=== PATIENT | male | born 1955 | race Caucasian/White ===

== ENCOUNTER 2017-04-05 15:56 | Emergency (ER) | payer OTHER ==
[~2017-04-05] VITALS: Ht 180.3 cm; Wt 93.0 kg
[2017-04-05 16:05] VITALS: BP 138/73
[2017-04-05] MEDS ORDERED: ACETAMINOPHEN 500 MG TABLET PO ONE (16:15)
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
[2017-04-05] MEDS ORDERED: IBUP-1007 PO (17:00)
[2017-04-05] MEDS ORDERED: METH-37 PO (17:00)
== END 2017-04-05 17:07 | disposition home or self-care (01) ==
LOC: ER 16:18
DX: S16.1XXA Strain of muscle, fascia and tendon at neck level, initial encounter (principal); E11.9 Type 2 diabetes mellitus without complications; R51 Headache; Z79.82 Long term (current) use of aspirin; V49.40XA Driver injured in collision with unspecified motor vehicles in traffic accident, initial encounter; Y93.89 Activity, other specified; Y99.8 Other external cause status; Y92.488 Other paved roadways as the place of occurrence of the external cause
CPT/HCPCS: 70450; 72125; 99284

== ENCOUNTER 2022-03-26 16:43 | Emergency (ER) | payer MEDICARE, OTHER ==
[~2022-03-26 16:43] MED LIST: CALCIUM CHLORIDE 1,000 MG/10 ML DISP.SYRIN ONE; DEXTROSE 50% 25 GM / 50ML DISP.SYRIN. IV ONE; EPINEPHrine SYRINGE 1 MG/10 ML SYRINGE. ONE; IBUP-1007 PO; METH-37 PO; SODIUM BICARB ADULT 8.4% 50 MEQ/50 ML DISP.SYRIN. ONE
--- NOTE | 2022-03-26 17:54 | PHYS DOC ---
Past Medical History Past Medical History: Diabetes-Type II Past Surgical History: Other Additional Past Surgical Histo: RIGHT KNEE Smoking Status: Never Smoker Alcohol Use: None Drug Use: None General Adult EDM: Chief Complaint: CPR/FULL ARREST HPI: HPI: 66-year-old male brought in in cardiac arrest by EMS. Per report he was cutting a neighbors tree when they noticed him to collapse. Nothing fell on him directl y that we know of. Blood sugar by EMS was too high to be read by the glucometer. That is all the information we have at this time. Patient arrives on a Lifep[employer] which is doing automated chest compressions and has an ET tube 7.[address] Patient was given 5 rounds of epinephrine per ACLS protocol prior to arrival. Review of Systems: Review of Systems: Cannot perform due to acuity of condition Heart Score: C/O Chest Pain: No Risk Factors: Risk Factors: DM, Current or recent (<one month) smoker, HTN, HLP, family history of CAD, obesity. Risk Scores: Score 0 - 3: 2.5% MACE over next 6 weeks - Discharge Home Score 4 - 6: 20.3% MACE over next 6 weeks - Admit for Clinical Observation Score 7 - 10: 72.7% MACE over next 6 weeks - Early Invasive Strategies Allergies: Allergies: Allergies Coded Allergies Type Severity Reaction Last Updated Verified No Known Drug Allergies 04/05/17 No Physical Exam: PE: Constitutional: Obtunded with no obvious injury arrives with Lifepak compression device HENT: No obvious frontal head injury Neck: No large distention or crepitus Cardiovascular: Asystole Lungs & Thorax: No spontaneous respirations Abdomen: Not distended] Skin: Warm, dry, no erythema, no rash. [] Back: No tenderness, no CVA tenderness. [] Extremities: No tenderness, no cyanosis, no clubbing, ROM intact, no edema. [] Neurologic: Completely obtunded no movement EKG: EKG: [] Radiology/Procedures: Radiology/Procedures: [] Course & Med Decision Making: Course & Med Decision Making ACLS protocol was followed. I placed a central line on the patient in the right groin which was done blindly without ultrasound guidance. Multiple rounds of bicarb were given in case the patient was in significant DKA and metabolic acidosis. Patient was pronounced after significant time working ACLS. Please reference nursing notes for complete actions during the code. Critical care time 35 minutes spent assessing the patient providing care Nursing staff was able to get hold of fianc was notified of . [employer] Degrad[employer] office was notified as well Cheyanne Disclaimer: Cheyanne Disclaimer: This electronic medical record was generated, in whole or in part, using a voice recognition dictation system. CENTRAL LINE INSERTION: Location: Right femoral, not placed with sterile precautions given the emergent situation. Date of Insertion: March 26, 2022 Occupation of [employer] Consultant: Attending Physician PICC Door To Door Selling Agent?: No Line exchanged over guidewire?: No Central Line Indications: Poor peripheral access Hand Hygiene Performed?: Yes Maximal sterile barriers used: Mask Insertion Site: Femoral Antimicrobial catheter used?: No Successful Placement?: Yes Departure Departure Impression: Primary Impression: Cardiac arrest Disposition: 20 Condition: Referrals: UNKNOWN PCP NAME (PCP) ALINE CLARK MD March 26, 2022 17:54
== END 2022-03-26 19:00 ==
LOC: ER 16:43
DX: I46.9 Cardiac arrest, cause unspecified (principal); E11.9 Type 2 diabetes mellitus without complications
CPT/HCPCS: 36556; 51702; 92950; 99285; J0171; J3490